=== PATIENT | female | born 2000 | race Caucasian/White ===

== ENCOUNTER 2024-12-21 14:24 | Emergency (ER) | payer SELFPAY ==
[~2024-12-21] VITALS: Ht 165.1 cm; Wt 50.0 kg
[~2024-12-21 14:24] MED LIST: CLON0.1T PO; DIVA-91 PO; RISP3TAB44 PO; SERT-160 PO; [UNRECOGNIZED DRUG - CODE] IJ
[2024-12-21 14:47] VITALS: BP 122/78; PULSE 95; RESP 20; TEMP 98.2; O2SAT 98
== END 2024-12-21 16:38 | disposition left against medical advice (07) ==
LOC: ER 14:24 → EDBD 14:24 → ER 16:38
DX: F41.9 Anxiety disorder, unspecified (principal); Z53.21 Procedure and treatment not carried out due to patient leaving prior to being seen by health care provider